=== PATIENT | male | born 1990 | race Caucasian/White ===

== ENCOUNTER 2017-01-03 07:36 | Emergency (ER) | payer SELFPAY ==
[2017-01-03 07:59] VITALS: BP 123/86; TEMP 99.5; O2SAT 97
== END 2017-01-03 08:00 | disposition left against medical advice (07) ==
LOC: ER 07:36
DX: Z53.21 Procedure and treatment not carried out due to patient leaving prior to being seen by health care provider (principal)

== ENCOUNTER 2017-04-20 10:04 | Emergency (ER) | payer OTHER ==
[2017-04-20 10:23] VITALS: TEMP 98; O2SAT 99
[2017-04-20] MEDS ORDERED: GABAPENTIN 300 MG CAP PO ONE (10:32)
[2017-04-20] MEDS: KETOROLAC TROMETHAMINE INJ 30 MG/ML VIAL IM ONE (10:52)
[2017-04-20] MEDS ORDERED: ACETAMINOPHEN-CAFF-BUTALBITAL 1 EA TAB PO SCH (11:00)
--- NOTE | 2017-04-20 11:04 | RAD ---
EXAM DESCRIPTION: XR CERVICAL SPINE 2 - 3 VIEWS CLINICAL HISTORY: fall, hx of previus trauma, mild muscle spasm COMPARISON: None FINDINGS: AP, lateral and open-mouth view of the cervical spine were submitted. The prevertebral soft tissues are within normal limits. There is intervertebral disc space narrowing and osteophytic formation at C5-C6 and C6-C7. There is no acute fracture or subluxation. The cervicothoracic junction is identified and well aligned. IMPRESSION: No acute abnormalities. Electronically signed by: Anup Barrios MD 04/20/2017 11:04 AM CDT
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
[2017-04-20 11:42] VITALS: BP 132/85
== END 2017-04-20 11:38 | disposition home or self-care (01) ==
LOC: ER 10:04
DX: S00.31XA Abrasion of nose, initial encounter (principal); G62.9 Polyneuropathy, unspecified; Z87.820 Personal history of traumatic brain injury; Z79.899 Other long term (current) drug therapy; Z88.0 Allergy status to penicillin; Z86.69 Personal history of other diseases of the nervous system and sense organs; W19.XXXA Unspecified fall, initial encounter; Z91.81 History of falling; Y93.01 Activity, walking, marching and hiking; Y92.9 Unspecified place or not applicable
CPT/HCPCS: 72040; J1885

== ENCOUNTER 2017-04-29 17:02 | Emergency (ER) | payer OTHER ==
[2017-04-29] MEDS ORDERED: LIDOCAINE VIS-MYLANTA 30 ML UD PO ONE (17:08)
[2017-04-29 17:23] VITALS: TEMP 97
[2017-04-29] MEDS ORDERED: ONDANSETRON ODT 8 MG TAB SL ONE ×2 (17:56→20:28)
[2017-04-29] MEDS ORDERED: SUCRALFATE 1 GM/10 ML 1 GM UD PO ONE (17:56)
--- NOTE | 2017-04-29 18:27 | RAD ---
PROCEDURE: Abdomen Series Clinical History: abd pain, n/v Indication: Same as above Comparison: None Technique: Two views of the abdomen and pelvis and 1.0 view of the chest were done. Findings: There is no gross evidence of free air in the abdomen or the pelvis . The small and large bowel gas pattern does not show any evidence of obstruction, ileus or bowel wall thickening. There is no visualization of radiopaque calculi in the outline of the urinary tract. There are no discrete airspace infiltrates or pleural effusions. There are no pneumothoraces. The cardiomediastinal silhouette is unremarkable There is no significant constipation. Multiple phleboliths are seen pelvis. Impression: Unremarkable chest, abdomen and pelvis Location of Interpretation: [id number] Electronically signed by: Colin Garcia MD 04/29/2017 6:26 PM CDT Workstation: [id number]
[2017-04-29] MEDS ORDERED: BUTORPHANOL TARTRATE 2 MG/ML VIAL IM ONE (18:42)
--- NOTE | 2017-04-29 20:21 | ED.PDOC ---
History of Present Illness - General Chief Complaint: GI Problem Time Seen by Provider: 04/29/17 17:08 Source: patient Exam Limitations: no limitations - History of Present Illness Initial Comments: the patient is a 26-year-old male presenting to the emergency room secondary to fairly acute onset abdominal pain in the upper abdomen. He experienced a similar episode last week and was seen by his primary care doctor for it. They were uncertain of the cause but then decided that if it recurred and he was choking emergency room for evaluation. The patient does have a history of gastritis. He takes ranitidine intermittently. The patient has admitted to using excessive alcohol recently. He does have a history of PTSD and feels like it is getting worse for him. He is a . The patient is not currently homicidal or suicidal. Timing/Duration: 1 hour Severity: moderate Improving Factors: nothing Worsening Factors: nothing Associated Symptoms: loss of appetite Allergies/Adverse Reactions: Allergies Penicillins Allergy (Verified 04/29/17 17:17) Home Medications: Ambulatory Orders Gabapentin 1,800 mg PO BID 01/03/17 Topiramate [Topamax] 100 mg PO BID 01/03/17 Maczbehqnttmq-Yxco-Egzvekrbtx [Fioricet] 1 ea PO Q8H PRN #21 tab 04/20/17 Gabapentin 600 mg PO TID #45 tab 04/20/17 Ondansetron [Zofran Odt] 4 mg PO Q4H PRN #10 tab 04/29/17 Sucralfate Tab [Carafate Tab] 1 gm PO QID #120 tab 04/29/17 Review of Systems - Review of Systems Review of Systems: 04/29/17 20:20 review of systems as per changes from his baseline symptoms: Constitutional: States: malaise EENTM: States: no symptoms reported Respiratory: States: no symptoms reported Cardiology: States: no symptoms reported Gastrointestinal/Abdominal: States: abdominal pain, nausea Genitourinary: States: no symptoms reported Musculoskeletal: States: no symptoms reported - no new Skin: States: no symptoms reported Neurological: States: anxiety, depressed Endocrine: States: no symptoms reported All other Systems: No Change from Baseline Past Medical History (General) - Patient Medical History Hx Seizures: No Hx Stroke: No Hx Dementia: No Hx Asthma: No Hx of COPD: No Hx Cardiac Disorders: No Hx Congestive Heart Failure: No Hx Pacemaker: No Hx Hypertension: No Hx Thyroid Disease: No Hx Diabetes: No Hx Gastroesophageal Reflux: No Hx Renal Disease: No Hx Cancer: No Hx of HIV: No Hx Hepatitis C: No Hx MRSA: No - Vaccination History Hx Tetanus, Diphtheria Vaccination: Yes Hx Influenza Vaccination: Yes Hx Pneumococcal Vaccination: No Immunizations Up to Date: No - Social History Hx Tobacco Use: No Hx Chewing Tobacco Use: No Hx Alcohol Use: No Hx Substance Use: No Hx Substance Use Treatment: No Hx Depression: No Feels Threatened In Home Enviroment: No Feels Threatened In a Relationship: No Hx Physical Abuse: No Hx Emotional Abuse: No Hx Suspected Abuse: No - Female History Patient is a Female of Child Bearing Age (10 -59 yrs old): No Patient : No Family Medical History - Family History Mother Family History: Unknown Living Status: Unknown Physical Exam - Physical Exam General Appearance: Alert, No apparent distress Eye Exam: bilateral normal Ears, Nose, Throat: hearing grossly normal, normal ENT inspection, normal pharynx Neck: non-tender, supple Respiratory: chest non-tender, lungs clear, normal breath sounds, no respiratory distress, no accessory muscle use Cardiovascular/Chest: normal peripheral pulses, regular rate, rhythm, no edema Peripheral Pulses: radial,right: 2+, radial,left: 2+, dorsalis pedis,right: 2+, dorsalis pedis,left: 2+, posterior tibialis,right: 2+, posterior tibialis,left: 2+ Gastrointestinal/Abdominal: soft, other - the patient has epigastric discomfort palpation. No definite rebound or peritoneal signs. No palpable mass. 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 The patient does make good eye contact. He appears to be mentatingnormally. Skin Exam: normal color Comments: Vital Signs - 24 hr 04/29/17 17:17 Temperature 97 F L Pulse Rate [ 80 Left Radial] Respiratory 18 Rate Blood Pressure 149/89 [Left Arm] O2 Sat by Pulse 99 Oximetry Progress - Progress Progress: 04/29/17 20:23 the patient is a 26-year-old male presenting to the emergency room secondary to epigastric pain that appears to be most likely related to gastritis. This has likely been made worse by recent alcohol usage. The patient is going to be placed on Carafate 4 times daily for the next month. He can increase his ranitidine to twice daily. 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 The patient has recently had an increase in alcohol use and corresponding worsening of his PTSD and depression symptoms. Below are contact numbers for the patient to get set up with psychiatric care through [place] for his [place], depression and substance use. ER warnings have been given for any acute worsening. he should follow-up with his primary care doctor later this week. [phone] (Mirta Shaw) - Results/Orders Results/Orders: acute abdominal series shows no evidence of perforation or obstruction. No free air. No significant constipation. No acute pathology noted. Laboratory Tests 04/29/17 04/29/17 17:20 17:20 WBC 11.0 H RBC 5.17 Hgb 16.7 Hct 47.4 MCV 91.7 MCH 32.3 H MCHC 35.2 RDW 14.5 Plt Count 364 MPV 8.5 Absolute Neuts (auto) 3.70 Absolute Lymphs (auto) 6.20 H Absolute Monos (auto) 0.90 H Absolute Eos (auto) 0.20 Absolute Basos (auto) 0.10 Neutrophils % 33.2 L Lymphocytes % 56.0 H Monocytes % 8.1 Eosinophils % 1.7 Basophils % 1.0 Sodium 141 Potassium 3.2 L Chloride 103 Carbon Dioxide 21 Anion Gap 20.2 H BUN 8 Creatinine 0.89 BUN/Creatinine Ratio 9.0 L Random Glucose 78 Serum Osmolality 278.5 Calcium 9.7 Total Bilirubin 0.7 AST 27 ALT 20 Alkaline Phosphatase 85 Serum Total Protein 8.5 H Albumin 4.9 Globulin 3.6 H Albumin/Globulin Ratio 1.4 Amylase 49 Lipase 23 Departure - Departure Clinical Impression: Gastritis Disposition: Discharge to Home or Self Care Condition: Fair Departure Forms: ED Discharge - Pt. Copy, Patient Portal Self Enrollment Instructions: DI for Gastritis Diet: bland diet Activity: increase activity as tolerated Prescriptions: Ondansetron [Zofran Odt] 4 mg PO Q4H PRN #10 tab PRN Reason: Vomiting Sucralfate Tab [Carafate Tab] 1 gm PO QID #120 tab Home Medications: Ambulatory Orders Gabapentin 1,800 mg PO BID 01/03/17 Topiramate [Topamax] 100 mg PO BID 01/03/17 Cozfutwpqdort-Fhiy-Aesiokargd [Fioricet] 1 ea PO Q8H PRN #21 tab 04/20/17 Gabapentin 600 mg PO TID #45 tab 04/20/17 Ondansetron [Zofran Odt] 4 mg PO Q4H PRN #10 tab 04/29/17 Sucralfate Tab [Carafate Tab] 1 gm PO QID #120 tab 04/29/17 Additional Instructions: the patient is a 26-year-old male presenting to the emergency room secondary to epigastric pain that appears to be most likely related to gastritis. This has likely been made worse by recent alcohol usage. The patient is going to be placed on Carafate 4 times daily for the next month. He can increase his ranitidine to twice daily. 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 The patient has recently had an increase in alcohol use and corresponding worsening of his PTSD and depression symptoms. Below are contact numbers for the patient to [facility] and [facility] use. ER warnings have been given for any acute worsening. he should follow-up with his primary care doctor later this week. [phone] (Mirta Shaw)
[2017-04-29] MEDS ORDERED: PANTOPRAZOLE SODIUM TAB 40 MG PO ONE (20:28)
[2017-04-29] MEDS ORDERED: PROMETHAZINE HCL 25 MG TAB PO ONE (20:28)
[2017-04-29 20:44] VITALS: BP 109/62; O2SAT 95
== END 2017-04-29 20:44 | disposition home or self-care (01) ==
LOC: ER 17:02
DX: K29.70 Gastritis, unspecified, without bleeding (principal); F43.10 Post-traumatic stress disorder, unspecified; Z88.0 Allergy status to penicillin; Z79.899 Other long term (current) drug therapy
CPT/HCPCS: 36415; 74020; 80053; 82150; 83690; 85025; J0595; Q0169